=== PATIENT | male | born 1955 | race Caucasian/White ===

== ENCOUNTER → 2018-06-17 | Outpatient (CLI) | payer OTHER | END | disposition home or self-care (01) | LOC: KCIC MRI 12:19 | DX: M47.896 Other spondylosis, lumbar region (principal); M48.061 Spinal stenosis, lumbar region without neurogenic claudication; E88.2 Lipomatosis, not elsewhere classified; R20.0 Anesthesia of skin | CPT/HCPCS: 72148 ==

== ENCOUNTER 2022-03-24 15:03 | Emergency (ER) | payer BC, MEDICARE ==
[~2022-03-24] VITALS: Ht 175.3 cm; Wt 60.2 kg
[~2022-03-24 15:03] MED LIST: ASPI-886 PO; FLEC100T PO; LISI1TAB37 PO; METO100T5 PO
[2022-03-24 15:29] LABS: BASO % 1 % (0-3); EOS # 0.3 x10^3/uL (0.0-0.7); EOS % 4 % (0-3); HEMATOCRIT 45.1 % (39.0-53.0); HEMOGLOBIN 15.3 g/dL (13.0-17.5); LYMPH # 2.4 x10^3/uL (1.0-4.8); LYMPH % 33 % (24-48); MEAN CORPUSCULAR HEMOGLOBIN 30 pg (25-35); MEAN CORPUSCULAR HGB CONC 34 g/dL (31-37); MEAN CORPUSCULAR VOLUME 89 fL (79-100); MONO # 0.9 x10^3/uL (0.0-1.1); MONO % 12 % (0-9); NEUT # 3.8 x10^3/uL (1.8-7.7); NEUT % 52 % (31-73); PLATELET COUNT 324 x10^3/uL (140-400); RED BLOOD COUNT 5.09 x10^6/uL (4.30-5.70); RED CELL DISTRIBUTION WIDTH 13.2 % (11.5-14.5); WHITE BLOOD COUNT 7.3 x10^3/uL (4.0-11.0)
--- NOTE | 2022-03-24 15:34 | RAD ---
Single view chest dated 03/24/2022 3:30 PM: COMPARISON: 07/09/2018 Clinical Indication: Palpitations. Findings: Single upright portable exam of the chest was performed. Heart size and mediastinal contours are with in normal limits. Lungs are clear. No consolidation or pleural effusion. No pneumothorax. IMPRESSION: No acute radiographic abnormality. Electronically signed by: Alonzo Contreras MD (03/24/2022 3:32 PM) BRAD
[2022-03-24 15:46] LABS: CALCIUM 9.4 mg/dL (8.5-10.1); GFR 74.8
[2022-03-24 15:51] LABS: ALBUMIN 4.1 g/dL (3.4-5.0); ALBUMIN/GLOBULIN RATIO 1.1 (1.0-1.7); TOTAL BILIRUBIN 0.8 mg/dL (0.2-1.0); TOTAL PROTEIN 7.8 g/dL (6.4-8.2)
--- NOTE | 2022-03-24 16:22 | PHYS DOC ---
Past Medical History Past Medical History: A-Fib (paroxysmal, episodic), High Cholesterol, Hypertension Past Surgical History: Other Additional Past Surgical Histo: back surgery, sinus surgery Smoking Status: Never Smoker Alcohol Use: None Drug Use: None General Adult EDM: Chief Complaint: Palpitations HPI: HPI: Patient is a 66 year old male with history of paroxysmal atrial fibrillation who presents with palpitations. Patient states he was lifting a box, moving things around in his garage, when he felt the onset of an episode of atrial fibrillation. Patient reports that he gets an episode every 1-2 years, with a total of about 6 episodes over the past decade. He states he can feel when he is in A. fib, though it gets harder as he gets older. Patient took flecainide about 35-45 minutes prior to arrival. Patient denies weakness, lightheadedness, chest pain, shortness of breath, diaphoresis, nausea, vomiting. Patient has no other complaints at this time. Review of Systems: Review of Systems: 12 systems reviewed. ROS negative or noncontributory except as mentioned in HPI. Heart Score: C/O Chest Pain: No Current Medications: Current Medications Medications (Trade) Dose Ordered Sig/Mila Start Time Stop Time Status Last Admin Dose Admin Diltiazem HCl (Cardizem Iv Push) 10 mg 1X ONCE 03/24/22 15:30 03/24/22 15:31 DC Allergies: Allergies: Allergies Coded Allergies Type Severity Reaction Last Updated Verified No Known Drug Allergies 03/24/22 No Physical Exam: PE: Constitutional: Well developed, well nourished, no acute distress, non-toxic appearance. HENT: Normocephalic, atraumatic, bilateral external ears normal, nose normal. Eyes: EOMI, conjunctiva normal, no discharge. Neck: Normal range of motion, no stridor. Cardiovascular: Elevated heart rate with irregular rhythm. No apparent murmurs, rubs or gallops. Lungs & Thorax: Equal thoracic expansion, no increased work of breathing, bilateral breath sounds clear to auscultation. Skin: Warm, dry, no erythema, no rash. Neurologic: Alert and oriented x4, normal motor function, normal sensory function, no focal deficits noted. Current Patient Data: Labs: Laboratory Tests Test 03/24/22 15:20 White Blood Count 7.3 x10^3/uL (4.0-11.0) Red Blood Count 5.09 x10^6/uL (4.30-5.70) Hemoglobin 15.3 g/dL (13.0-17.5) Hematocrit 45.1 % (39.0-53.0) Mean Corpuscular Volume 89 fL (79-100) Mean Corpuscular Hemoglobin 30 pg (25-35) Mean Corpuscular Hemoglobin Concent 34 g/dL (31-37) Red Cell Distribution Width 13.2 % (11.5-14.5) Platelet Count 324 x10^3/uL (140-400) Neutrophils (%) (Auto) 52 % (31-73) Lymphocytes (%) (Auto) 33 % (24-48) Monocytes (%) (Auto) 12 % (0-9) H Eosinophils (%) (Auto) 4 % (0-3) H Basophils (%) (Auto) 1 % (0-3) Neutrophils # (Auto) 3.8 x10^3/uL (1.8-7.7) Lymphocytes # (Auto) 2.4 x10^3/uL (1.0-4.8) Monocytes # (Auto) 0.9 x10^3/uL (0.0-1.1) Eosinophils # (Auto) 0.3 x10^3/uL (0.0-0.7) Basophils # (Auto) 0.0 x10^3/uL (0.0-0.2) Sodium Level 138 mmol/L (136-145) Potassium Level 4.0 mmol/L (3.5-5.1) Chloride Level 99 mmol/L (98-107) Carbon Dioxide Level 28 mmol/L (21-32) Anion Gap 11 (6-14) Blood Urea Nitrogen 22 mg/dL (8-26) Creatinine 1.0 mg/dL (0.7-1.3) Estimated GFR (Cockcroft-Gault) 74.8 BUN/Creatinine Ratio 22 (6-20) H Glucose Level 118 mg/dL (70-99) H Calcium Level 9.4 mg/dL (8.5-10.1) Total Bilirubin 0.8 mg/dL (0.2-1.0) Aspartate Amino Transferase (AST) 20 U/L (15-37) Alanine Aminotransferase (ALT) 27 U/L (16-63) Alkaline Phosphatase 56 U/L (46-116) Troponin I High Sensitivity 8 ng/L (4-75) Total Protein 7.8 g/dL (6.4-8.2) Albumin 4.1 g/dL (3.4-5.0) Albumin/Globulin Ratio 1.1 (1.0-1.7) Laboratory Tests 03/24/22 15:20 Laboratory Tests 03/24/22 15:20 Vital Signs: Vital Signs Date Time Temp Pulse Resp B/P (MAP) Pulse Ox O2 Delivery O2 Flow Rate FiO2 03/24/22 16:42 81 20 143/83 (103) 98 Room Air 03/24/22 15:14 98.0 127 20 143/83 (103) 98 Room Air 98.0 EKG: EKG: EKG Interpreted by Dr. Jones at 1520: Irregularly irregular rhythm at 133 bpm with no discernible P waves. QT 306 ms/QTc 457 ms. No STEMI. EKG Interpreted by Dr. Jones at 1620: Regular rate and rhythm 80 bpm with no ectopic beats. LA 210 ms/QT 366 ms/QTc 426 ms. No STEMI. Radiology/Procedures: Radiology/Procedures: PROCEDURE: PORTABLE CHEST 1V Single view chest dated 03/24/2022 3:30 PM: COMPARISON: 07/09/2018 Clinical Indication: Palpitations. Findings: Single upright portable exam of the chest was performed. Heart size and mediastinal contours are within normal limits. Lungs are clear. No consolidation or pleural effusion. No pneumothorax. IMPRESSION: No acute radiographic abnormality. Electronically signed by: Alonzo Contreras MD (03/24/2022 3:32 PM) [facility] [place] Course & Med Decision Making: Course & Med Decision Making Pertinent Labs and Imaging studies reviewed. (See chart for details) Patient is a 66-year-old male with known paroxysmal atrial fibrillation who presents to the emergency department with palpitations. Patient was found to be in atrial fibrillation on arrival. He cardioverted while in the department. The Cardizem that was ordered was canceled, as it was no longer needed. Repeat EKG shows sinus rhythm at 80 bpm. Patient instructed to follow-up with his planning intern. Return precautions were provided. Patient understands and is agreeable to discharge plan. [place] Disclaimer: [place] Disclaimer: This electronic medical record was generated, in whole or in part, using a voice recognition dictation system. Departure Departure Impression: Primary Impression: Paroxysmal atrial fibrillation Additional Impression: Atrial fibrillation status post cardioversion Disposition: 01 HOME / SELF CARE / HOMELESS Condition: IMPROVED Referrals: YUE SOTO MD (PCP) Patient Instructions: Atrial Fibrillation, [id number] Additional Instructions: Follow up with your planning intern, please. EMERGENCY DEPARTMENT GENERAL DISCHARGE INSTRUCTIONS Thank you for coming to [facility] Emergency Department (ED) today and trusting us with you care. We trust that you had a positive experience in our Emergency Department. If you wish to speak to the department management, you may call the director at . YOUR FOLLOW UP INSTRUCTIONS ARE FOLLOWS: 1. Follow up with your primary care doctor. If you do not have a primary doctor , please ask for a resource list of physicians or clinics that may be able to assist you with follow up care. 2. The emergency provider has interpreted your imaging studies, if any were ordered. The radiology academic support specialist also reviewed them. If there is a change in the findings, you will be notified in 48 hours when at all possible. 3. If a lab test or culture has been done, your results will be reviewed and you will be notified if you need a change in treatment. 4. Follow instructions verbalized to you and refer to the printouts if needed. ADDITIONAL INSTRUCTIONS AND INFORMATION: 1. Your care today has been supervised by a physician who is specially trained in emergency care. Many problems require more than one evaluation for a complete diagnosis and treatment. We recommend that you schedule your follow up appointment as recommended to ensure complete treatment of you illness or injury. If you are unable to obtain follow up care and continue to have a problem, or if your condition worsens, we recommend that you return to the ED. 2. We are not able to safely determine your condition over the phone nor are we able to give sound medical advice over the phone. For these safety reasons, if you call for medical advice we will ask you to come to the ED for further william luation. 3. If you have any questions regarding these discharge instructions please call the ED at . SAFETY INFORMATION: In the interest of safety, wellness, and injury prevention; we encourage you to wear your seat belt, if you smoke; quite smoking, and we encourage family to use a protective helmet for bicycling and other sporting events that present an increased risk for head injury. IF YOUR SYMPTOMS WORSEN OR NEW SYMPTOMS DEVELOP, OR YOU HAVE CONCERNS ABOUT YOUR CONDITION; OR IF YOUR CONDITION WORSENS WHILE YOU ARE WAITING FOR YOUR FOLLOW UP APPOINTMENT; EITHER CONTACT YOUR PRIMARY CARE DOCTOR, THE PHYSICIAN WHOSE NAME AND NUMBER YOU WERE GIVEN, OR RETURN TO THE ED IMMEDIATELY. ABY HAN March 24, 2022 16:22
[2022-03-24 16:42] VITALS: BP 143/83
--- NOTE | 2022-03-25 19:10 | EKG ---
[facility] [address] [place] [address] Test Date: 2022-03-24 Test Time: 16:17:23 Pat Name: STEW PETERSON Department: Room: Gender: M [employer] Worker: : 1955 Requested By: ABY HAN Order Number: [id number] Reading MD: Measurements Intervals [place] Rate: 80 P: 36 ID: [id number] QRS: -43 QRSD: 90 T: 13 QT: 366 QTc: 426 Interpretive Statements SINUS RHYTHM ABNORMAL LEFT AXIS DEVIATION LEFT ANTERIOR FASCICULAR BLOCK QRS(T) CONTOUR ABNORMALITY CONSIDER ANTEROSEPTAL MYOCARDIAL DAMAGE ABNORMAL ECG RI6.01 No previous ECG available for comparison
--- NOTE | 2022-03-25 19:10 | EKG ---
[facility] [address] [place] [address] Test Date: 2022-03-24 Test Time: 15:15:22 Pat Name: STEW PETERSON Department: Room: Gender: M Surveillance Camera Technician: : 1955 Requested By: ABY HAN Order Number: [id number] Reading MD: Measurements Intervals [place] Rate: 133 P: OR: QRS: -41 QRSD: 88 T: -1 QT: 306 QTc: 457 Interpretive Statements IRREGULAR RHYTHM, NO P-WAVE FOUND ABNORMAL LEFT AXIS DEVIATION QRS(T) CONTOUR ABNORMALITY CONSIDER INFERIOR INFARCT ABNORMAL ECG RI6.01 No previous ECG available for comparison
== END 2022-03-24 17:01 | disposition home or self-care (01) ==
LOC: ER 15:03
DX: I48.0 Paroxysmal atrial fibrillation (principal); R00.2 Palpitations; E78.00 Pure hypercholesterolemia, unspecified; I10 Essential (primary) hypertension
CPT/HCPCS: 36415; 71045; 80053; 84484; 85025; 93005; 99285-25

== ENCOUNTER → 2022-04-01 | Outpatient (CLI) | payer OTHER, MEDICARE ==
[2022-03-24 16:42] VITALS: BP 143/83
--- NOTE | 2022-04-01 14:51 | KCIC ---
EXAM: Lumbar spine MRI without contrast. HISTORY: Lower back pain. TECHNIQUE: Multiplanar, multisequence magnetic resonance imaging of the lumbar spine was performed wi thout contrast. COMPARISON: 06/17/2018. FINDINGS: There is minimal lumbar scoliosis. There is minimal retrolisthesis of L5 on S1. There is mu ltilevel endplate remodeling with disc space narrowing and disc desiccation, primarily at L4-L5 and L 5-S1. There are multiple endplate Schmorl's nodes. There are a few benign osseous hemangiomas. There is no suspicious osseous lesion. There is no acute or subacute fracture. The conus terminates at L1-2 . There are small simple right renal cysts. Follow-up is not routinely performed for simple cysts. At L1-L2, there is a right paracentral to lateral recess disc protrusion superimposed on endplate rem odeling. There is mild bilateral foraminal stenosis. There is mild central canal stenosis and narrowi ng of the right lateral recess. At L2-L3, there is endplate remodeling. There is no stenosis. At L3-L4, there is a posterior central disc protrusion superimposed on a disc bulge and endplate patricia deling. There is also a suspected shallow right extraforaminal to lateral disc protrusion. There is m ild bilateral foraminal stenosis. There is moderate central canal stenosis. At L4-L5, there is a broad-based left paracentral to lateral recess disc protrusion with slight super ior and inferior extrusion and there is a right extraforaminal to lateral disc protrusion. These are superimposed on a disc bulge and endplate osteophytosis. There is mild bilateral facet arthropathy. T here are partial laminectomy changes. There is moderate right and mild left foraminal stenosis. There is effacement of the left lateral recess and abutment the traversing left L5 nerve root. At L5-S1, there is a broad-based posterior central disc protrusion superimposed on a disc bulge and e ndplate remodeling. There is mild right facet arthropathy. There is mild retrolisthesis. There is mil d left foraminal stenosis. There is mild central canal stenosis. IMPRESSION: 1. L3-L4: New posterior central disc protrusion superimposed on additional stable degenerative change s. This contributes to mild bilateral foraminal and moderate central canal stenosis, the latter of wh ich is increased compared to the prior exam. 2. L4-L5: Decrease in a previously demonstrated left paracentral disc protrusion and slight extrusion superimposed on additional stable degenerative changes and partial laminectomy changes. This contrib utes to moderate right and mild left foraminal stenosis and effacement of the left lateral recess and abutment the traversing left L5 nerve root. 3. L1-L2: New right paracentral to lateral recess disc protrusion superimposed on additional degener ative changes. This contributes to mild bilateral foraminal and central canal stenosis and narrowing of the right lateral recess. 4. Degenerative change throughout the remainder the lumbar spine, stable compared to the prior study and resulting in stenosis as described above. Electronically signed by: Thania Soto MD (04/01/2022 2:49 PM) [id number]
== END ==
LOC: KCIC MRI 12:54
PROVIDERS: ATTEND Family Medicine
DX: M51.27 Other intervertebral disc displacement, lumbosacral region (principal); M47.817 Spondylosis without myelopathy or radiculopathy, lumbosacral region; M43.17 Spondylolisthesis, lumbosacral region; M41.86 Other forms of scoliosis, lumbar region; M48.07 Spinal stenosis, lumbosacral region; M51.46 Schmorl's nodes, lumbar region; D18.09 Hemangioma of other sites; N28.1 Cyst of kidney, acquired; M54.40 Lumbago with sciatica, unspecified side; W11.XXXS Fall on and from ladder, sequela
CPT/HCPCS: 72148